=== PATIENT | female | born 1990 | race Caucasian/White ===

== ENCOUNTER → 2018-08-17 15:38 | Outpatient (POV) | payer BC, SELFPAY | PROVIDERS: PCP Nurse Practitioner Family; Visit Provider Dermatology | DX: Z00.00 Encounter for general adult medical examination without abnormal findings (principal) ==

== ENCOUNTER → 2022-02-04 16:00 | Outpatient (CLI) | payer BC, SELFPAY ==
[2022-02-04 17:59] LABS: Alanine Aminotransferase 37 U/L (12-78); Albumin/Globulin Ratio 1.8 (1.1-1.8); Alkaline Phosphatase 70 U/L (38-126); Anion Gap 15.1 mEq/L (5-15); Aspartate Amino Transferase 37 U/L (14-36); Basophils # 0.1 K/mm3 (0-0.2); Basophils % 1.1 % (0.1-2.0); Bilirubin,Total 0.6 mg/dl (0.2-1.3); Blood Urea Nitrogen 18 mg/dl (7-17); Carbon Dioxide 28 mmol/L (22.0-30.0); Chloride 102 mmol/L (98-107); Chol/HDL Ratio 6.3 (1-3.5); Cholesterol 239 mg/dl (140-200); Eosinophils # 0.2 K/mm3 (0.0-0.4); Eosinophils % 2.1 % (0.1-12.0); Estimated Glomerular Filt Rate 115 ml/min (>60); GFR (African American) 139 ML/MIN (>60); Globulin 2.8 g/dL (1.3-3.2); Glucose 83 mg/dl (74-100); HDL Cholesterol 38 mg/dl (40-60); Hematocrit 42.2 % (37.0-47.0); Hemoglobin 13.5 g/dL (12.2-16.2); Lymphocytes # 2.3 K/mm3 (0.7-4.5); Lymphocytes % 28.6 % (10-50); Mean Corpuscular HGB Conc 31.9 g/dL (31.8-35.4); Mean Corpuscular Hemoglobin 29.5 pg (27.0-31.2); Mean Corpuscular Volume 92.5 fl (81-99); Mean Platelet Volume 8.4 fl (7.4-10.4); Monocytes # 0.3 K/mm3 (0.1-1.0); Monocytes % 4.1 % (1.7-9.3); Neutrophils # 5.2 K/mm3 (1.8-7.8); Neutrophils % 64.1 % (37.0-80.0); Platelet Count 464 K/mm3 (142-424); Potassium 5.1 mmoL/L (3.5-5.1); Red Blood Count 4.56 M/mm3 (4.20-5.40); Sodium 140 mmol/L (136-145); Total Protein,Serum 7.8 g/dl (6.3-8.2); Triglycerides 268 mg/dl (30-150); VLDL Cholesterol 54 mg/dL (0-40); White Blood Count 8.1 K/mm3 (4.8-10.8)
[2022-02-04 18:09] LABS: Direct LDL Cholesterol 137.11 mg/dL (100-129)
[2022-02-04 18:18] LABS: 25-OH Vitamin D, Total 35.3 ng/mL (30-100)
[2022-02-04 18:29] LABS: Thyroid Stimulating Hormone 0.77 uIU/mL (0.465-4.68)
[2022-02-04 18:49] LABS: Vitamin B12 521 pg/mL (239-931)
== END ==
PROVIDERS: Visit Provider Physician Assistant
DX: Z01.89 Encounter for other specified special examinations (principal); F41.9 Anxiety disorder, unspecified; F32.A Depression, unspecified; E28.2 Polycystic ovarian syndrome
CPT/HCPCS: 80053; 80061; 82306; 82607; 84443; 85025

== ENCOUNTER → 2022-03-04 15:39 | Outpatient (CLI) | payer BC, SELFPAY ==
[2022-03-04 16:33] LABS: Basophils # 0.1 K/mm3 (0-0.2); Basophils % 1.1 % (0.1-2.0); Eosinophils # 0.1 K/mm3 (0.0-0.4); Eosinophils % 1.6 % (0.1-12.0); Hematocrit 37.1 % (37.0-47.0); Hemoglobin 12.3 g/dL (12.2-16.2); Lymphocytes # 2.6 K/mm3 (0.7-4.5); Mean Corpuscular HGB Conc 33.1 g/dL (31.8-35.4); Mean Corpuscular Volume 90.6 fl (81-99); Mean Platelet Volume 7.3 fl (7.4-10.4); Monocytes # 0.2 K/mm3 (0.1-1.0); Neutrophils # 4.4 K/mm3 (1.8-7.8); Neutrophils % 59.3 % (37.0-80.0); Platelet Count 408 K/mm3 (142-424); Red Blood Count 4.09 M/mm3 (4.20-5.40); White Blood Count 7.5 K/mm3 (4.8-10.8)
[2022-03-04 16:47] LABS: Alanine Aminotransferase 17 U/L (12-78); Albumin Level 4.5 g/dl (3.5-5.0); Albumin/Globulin Ratio 1.7 (1.1-1.8); Alkaline Phosphatase 59 U/L (38-126); Anion Gap 8.2 mEq/L (5-15); Aspartate Amino Transferase 25 U/L (14-36); Bilirubin,Total 0.4 mg/dl (0.2-1.3); Blood Urea Nitrogen 13 mg/dl (7-17); Calcium 9.5 mg/dl (8.4-10.2); Carbon Dioxide 31 mmol/L (22.0-30.0); Chloride 105 mmol/L (98-107); Estimated Glomerular Filt Rate 96 ml/min (>60); GFR (African American) 117 ML/MIN (>60); Globulin 2.6 g/dL (1.3-3.2); Glucose 90 mg/dl (74-100); Potassium 4.2 mmoL/L (3.5-5.1); Sodium 140 mmol/L (136-145); Total Protein,Serum 7.1 g/dl (6.3-8.2)
[2022-03-04 16:53] LABS: HCG Qualitative, Serum Negative (Negative)
[2022-03-04 17:44] LABS: Amphetamine/Metha Screen,Urine Negative ng/ml (<1000); Barbiturates Screen,Urine Negative ng/ml (<200)
[2022-03-04 17:45] LABS: Benzodiazepines Screen,Urine Negative ng/ml (<200)
[2022-03-04 17:46] LABS: Cannabinoid Screen,Urine Negative ng/ml (<50); Cocaine Screen,Urine Negative ng/ml (<300)
[2022-03-04 17:47] LABS: Methadone Screen,Urine Negative ng/ml (<300)
[2022-03-04 17:48] LABS: Opiate Screen,Urine Negative ng/ml (<300); Phencyclidine Screen,Urine Negative ng/ml (<25)
== END ==
PROVIDERS: PCP Physician Assistant; Visit Provider Obstetrics & Gynecology
DX: Z01.818 Encounter for other preprocedural examination (principal); Z11.52 Encounter for screening for COVID-19; N92.0 Excessive and frequent menstruation with regular cycle
CPT/HCPCS: 36415; 80053; 80305; 84703; 85025; C9803; U0003; U0005

== ENCOUNTER 2022-03-06 06:54 | Day surgery (SDC) | payer BC, SELFPAY ==
[2022-03-04 09:08] VITALS: BMI 27.4
[2022-03-06] VITALS (11 sets, daily range): BP systolic 99–144; BP diastolic 65–89; PULSE 66–80; RESP 12–18; TEMP 36.3–37.3; O2SAT 94–100
--- NOTE | 2022-03-06 09:00 | HMH.ANESCL ---
[facility] Anesthesia Checklist - Structural Data Admitted From: Home Planned Operative Procedure/s: d/c modesto caban Consent for Planned Operative Procedure(s) Verified: Yes - Additional verifications Anesthesia Reactions: No Hx Blood Transfusions: No Blood Transfusion Reaction: No - Airway Assessment C-Spine Mobility Assessed: Yes TMJ Mobility Assessed: Yes Dentition: Good Dentition - Neurological Assessment Level of Consciousness: Awake, Alert, Appropriate - Anesthesia Plan Anesthesia Risk discussed: Yes Anesthesia Plan: Verified ASA Class: II Anesthesia Type: General [facility] History I have reviewed the patient's past medical history: Yes Medical History: Denies:: Cancer, Diabetes Mellitus Type 1, Diabetes Mellitus Type 2, Internal Pacemaker, MRSA, Seizures *Have you ever received a pneumonia vaccine?: No *Have you received a flu vaccine this season?: No Other Medical History: Denies: Blood Transfusion Reaction Anesthesia experience/problems:: none Other Surgeries: Yes: No Previous Surgery. No: Pacemaker Amputation: No Fractures: No - *Social History Last grade of school completed: Advanced degree Smoking Status: Never smoker Alcohol Intake: never Substance Use Type: denies use *Occupational Status:: employed Housing: house Household Members: spouse, family *Travel in the last 8 weeks: None Family Hx:: Hypertension
--- NOTE | 2022-03-06 09:25 | P.PN_ITS ---
[facility] Anesthesia Record Part I Intake, IV Amount: 1,000 Estimated blood loss (mL): 0 Urine output (mL): 0 Blood Pressure: 127/77 SaO2: 98 Pulse Rate: 76 Respiratory Rate: 12 Temperature: 97.4 F Patient is:: Awake, Stable Stable to PACU at:: 09:25
--- NOTE | 2022-03-06 09:42 | P.OP_ITS ---
Date of procedure: 03/06/22 Pre-op Diagnosis:: Heavy menstrual bleeding Dysfunctional uterine bleeding Post-op Diagnosis:: same Procedure performed:: D&C Hysteroscopy Novasure Endometrial Ablation Surgeon:: Mallory Marin MD [employer] MICA:: Scott Wilkins Anesthesia: GETA Estimated blood loss (mL): 5 Operative findings:: normal uterine cavity, with no polyps or fibroids visualized Operative note:: The patient was taken to the OR where general anesthesia was administered without difficulty. She was prepped/draped in the normal sterile fashion in supine position. The cervix was dilated until hysteroscope could be accomodated. The hysteroscope was introduced through the cervix into the uterus and the cavity surveyed. No abnormalities, fibroids or polyps were observed within the cavity. The Novasure device was introduced into the uterus. The cavity length was measured at 5cm and width at 4cm, and the cavity assessment w as successful. The Novasure was deployed and the endometrial ablation was completed in 68 seconds, and without complication. All instruments were removed from her vagina, she was awakened from anesthesia and taken to PACU in stable condition. Condition: stable Disposition: PACU Specimens:: Endometrial curettings Complications:: none
--- NOTE | 2022-03-07 08:21 | HMH.ANESII ---
[facility] Anesthesia Record Part II Discharge Time: 09:53 Destination: Surgical Day Care (OP Surgery) PACU nurse assessment reviewed?: Yes Patient Condition:: Good Anesthesia Complications:: None Swallowing reflex intact?: Yes Cyanosis?: No Blood Pressure: 144/85 Pulse Rate: 72 Temperature: 99.1 F Mental Status: Alert & Oriented Pain level:: 0 Nausea and/or vomitting:: None Intake, IV Amount: 0
[2022-03-07 08:22] VITALS: BP 144/85; PULSE 72; TEMP 37.3
== END 2022-03-06 10:55 | disposition home or self-care (01) ==
LOC: OR 06:57
PROVIDERS: PCP Physician Assistant; Visit Provider Obstetrics & Gynecology
PROC: (CPT 58563; principal; 2022-03-06 08:30)
DX: N92.0 Excessive and frequent menstruation with regular cycle (principal); N93.8 Other specified abnormal uterine and vaginal bleeding; N94.6 Dysmenorrhea, unspecified; Z98.51 Tubal ligation status; Z79.899 Other long term (current) drug therapy; Z82.49 Family history of ischemic heart disease and other diseases of the circulatory system
CPT/HCPCS: 58563; 96374; J2405

== ENCOUNTER → 2022-11-12 11:25 | Outpatient (CLI) | payer BC, SELFPAY ==
[2022-11-11 15:22] LABS: Basophils % 0.6 % (0.1-2.0); Eosinophils # 0.1 K/mm3 (0.0-0.4); Hematocrit 37.9 % (37.0-47.0); Hemoglobin 12.6 g/dL (12.2-16.2); Lymphocytes # 2.2 K/mm3 (0.7-4.5); Lymphocytes % 33.9 % (10-50); Mean Corpuscular HGB Conc 33.4 g/dL (31.8-35.4); Mean Corpuscular Hemoglobin 29.8 pg (27.0-31.2); Mean Corpuscular Volume 89.3 fl (81-99); Mean Platelet Volume 8.4 fl (7.4-10.4); Monocytes # 0.2 K/mm3 (0.1-1.0); Monocytes % 3.5 % (1.7-9.3); Neutrophils # 3.9 K/mm3 (1.8-7.8); Platelet Count 374 K/mm3 (142-424); Red Blood Count 4.24 M/mm3 (4.20-5.40); Red Cell Distribution Width 13.1 % (11.5-17.5); White Blood Count 6.5 K/mm3 (4.8-10.8)
[2022-11-11 15:39] LABS: Alanine Aminotransferase 22 U/L (12-78); Albumin Level 4.5 g/dl (3.5-5.0); Albumin/Globulin Ratio 1.7 (1.1-1.8); Alkaline Phosphatase 89 U/L (38-126); Anion Gap 11.6 mEq/L (5-15); Aspartate Amino Transferase 30 U/L (14-36); Bilirubin,Total 0.5 mg/dl (0.2-1.3); Blood Urea Nitrogen 18 mg/dl (7-17); Calcium 9.9 mg/dl (8.4-10.2); Carbon Dioxide 28 mmol/L (22.0-30.0); Chloride 104 mmol/L (98-107); Cholesterol 209 mg/dl (140-200); Estimated Glomerular Filt Rate 82 ml/min (>60); GFR (African American) 99 ML/MIN (>60); Globulin 2.6 g/dL (1.3-3.2); Glucose 86 mg/dl (74-100); HDL Cholesterol 42 mg/dl (40-60); Potassium 4.6 mmoL/L (3.5-5.1); Sodium 139 mmol/L (136-145); Total Protein,Serum 7.1 g/dl (6.3-8.2); Triglycerides 154 mg/dl (30-150); VLDL Cholesterol 31 mg/dL (0-40)
[2022-11-11 15:50] LABS: Direct LDL Cholesterol 133.11 mg/dL (100-129)
[2022-11-11 16:10] LABS: Thyroid Stimulating Hormone 1.11 uIU/mL (0.465-4.68)
[2022-11-11 16:29] LABS: Vitamin B12 387 pg/mL (239-931)
== END ==
PROVIDERS: PCP Physician Assistant; Visit Provider Physician Assistant
DX: Z00.00 Encounter for general adult medical examination without abnormal findings (principal); E55.9 Vitamin D deficiency, unspecified; Z79.899 Other long term (current) drug therapy
CPT/HCPCS: 80053; 80061; 82306; 82607; 84443; 85025

== ENCOUNTER 2025-08-14 16:41 | Outpatient (CLI) | payer BC, SELFPAY ==
--- OUTSIDE RECORDS SUMMARY | 2025-08-15 09:53 | XMS_ITS | Clinical Summary ---
Author Organization [facility] Address [address] [place] [address] Care Team Providers Care Electronic Publications Specialist Name Role Phone Sydnie Carranza MD Primary Care Provide r Allergies No known active allergies Medications No known medications Active Problems Problem Noted Date Diagnosed Date Incomplete miscarriage 01/02/2019 Retained products of conception after miscarriag e 01/02/2019 Social History Tobacco Use Types Packs/Day Years Used Date Smoking Tobacco: Never Smokeless Tobacco: Never Alcohol Use Standard Drinks/Week Comments No 0 (1 standard drink = 0.6 oz pur e alcohol) AUDIT-C Answer Date Recorded Frequency of Alcohol Consumption Never 01/02/2019 Average Number of Drinks Not on file 019 Frequency of Binge Drinking Not on file 12/17 Abuse Screen Answer Date Recorded Unsafe at Home or Work/School Not on file Feels Threatened by Someone? Not on file 08/2023 Does Anyone Keep You from Co ntacting Others or Doint Things Outside the Home? Not on file 08/25/2023 Physical Sign of Abuse Present Not on file 1 Housing Stability Answer Date Recorded Current Living Arrangements Not on file 08/16 Potentially Unsafe Housing Conditions Not on oral e 08/25/2023 Family and Community Support Answer Nabeel e Recorded Help with Day-to-Day Activities Not on file 08/25/2023 Lonely or Isolated Not on file 08/25/2023 Employment Answer Date Recorded Do you want help finding or keeping work or a kristie b? Not on file 08/25/2023 Disabilities Answer Date Recorded Concentrating, Remembering, or Making Decisions Difficulty Not on file 08/25/2023 Doing Errands Independently Difficulty Not on fi le 08/25/2023 Education Answer Date Recorded Help with school or training? Not on file Preferred Language Not on file 08/25/2023 Comments Unknown Sex and Gender Information Value Date Recorded Sex Assigned at Not on file Legal Sex Female 1:47 PM EDT Gender Identity Not on file Sexual Orientation Not on file Last Filed Vital Signs Vital Sign Reading Time Taken Comments Blood Pressure 113/68 01/02/2019 12:58 PM EST Pulse 72 01/02/2019 12:58 PM EST Temperature 37.1 C (98.7 F) 01/02/2019 12:58 PM EST Respiratory Rate 17 01/02/2019 12:58 PM EST Oxygen Saturation 100% 01/02/2019 12:58 PM EST Inhaled Oxygen Concentration - - Weight 81.6 kg (180 lb) 01/02/2019 3:00 AM EST Height 162.6 cm (5' 4 ) 01/02/2019 3:00 AM EST Body Mass Index 30.9 01/02/2019 3:00 AM EST Plan of Treatment Health Maintenance Due Date Last Done Comments Annual Gynecologic Pelvic an d Breast Exam 1988 TDAP/TD VACCINES (1 - Tdap) 2007 ANNUAL PHYSICAL 01/02/2019 HEPATITIS C SCREENING 01/02/2019 INFLUENZA VACCINE 06/16/2025 Pneumococcal Vaccine 0-49 Aged Out No longer eligible based on patient's age to complete this topic Insurance Advance Directives * CPR (Attempt to Resuscitate) (Latest Code Status on File) Date Activated Date Inactivated Comments 01/02/2019 1:28 PM 01/02/2019 5:31 PM Question Answer Comments Code Status (Patient has no pulse and is not breathing): CPR (Attempt to Resuscitate) Medical Interventions (Patie nt has pulse or is breathing): Full Level Of Support Discussed With: Patient Care Teams Electronic Publications Specialist Relationship Specialty Start Date End Date Sydnie Carranza MD [address] [place] [address] PCP - General Obstetrics and Gynecology 01/02/19
--- OUTSIDE RECORDS SUMMARY | 2025-08-15 09:53 | XMS_ITS | Encounter Summary ---
Author Organization Healthcare Address [address] [place] [address] Care Team Providers Care Account Contact Associate Name Role Phone Unavailable Primary Care Provider Unavailabl e Reason for Visit * Reason Comments Med Refill Encounter Details Date Type Department Care Team (Late st Contact Info) Description 04/28/2021 Refill [facility] [address] [place] [address] Nataliia Smith MD [address] [place] [address] Social History Tobacco Use Types Packs/Day Years Used Date Smoking Tobacco: Never Comments Unknown Sex and Gender Information Value Date Recorded Sex Assigned at Female 06/16/2023 6:39 PM EDT Legal Sex Female 6:17 PM EDT Gender Identity Female 06/16/2023 6:39 PM EDT Sexual Orientation Not on file documented as of this encounter Miscellaneous Notes * Telephone Encounter - Willow Woodard - 05/01/2021 8:57 AM EDT Pt last saw annalisa post in December. She gave her an RX for this in Oct 2020 with 1 refill and she hasn't gotten any since then. Does she need an appt to get more? * Telephone Encounter - Anjali Thomas, PharmD - 05/01/2021 8:21 AM EDT Patient must make appointment for additional refills. Rx sent to [facility] for escitalopram 10mg #30 + no refills. documented in this encounter Plan of Treatment Not on file documented as of this encounter Visit Diagnoses Not on filedocumented in this encounter
--- OUTSIDE RECORDS SUMMARY | 2025-08-15 09:53 | XMS_ITS | Clinical Summary ---
Author Organization Healthcare Address [address] [place] [address] Care Team Providers Care Marine Electrician Helper Name Role Phone Unavailable Primary Care Provider Unavailabl e Medications escitalopram (Lexapro) 10 MG tablet TAKE 1 TABLET AT BEDTIME 30 tablet 05/01/2021 Active Immunizations Immunization Administration Dates Next Due Influenza, injectable, quadrivalent 09/19/2019 Tdap 04/08/2017 Social History Tobacco Use Types Packs/Day Years Used Date Smoking Tobacco: Never Comments Unknown Sex and Gender Information Value Date Recorded Sex Assigned at Female 06/16/2023 6:39 PM EDT Legal Sex Female 6:17 PM EDT Gender Identity Female 06/16/2023 6:39 PM EDT Sexual Orientation Not on file Last Filed Vital Signs Vital Sign Reading Time Taken Comments Blood Pressure 118/76 01/02/2020 11:04 AM EST Pulse 80 12/01/2019 11:17 AM EST Temperature - - Respiratory Rate 16 09/05/2019 10:2 4 AM EDT Oxygen Saturation - - Inhaled Oxygen Concentration - - Weight 86.1 kg (189 lb 13.1 oz) 020 11:04 AM EST Height 162.6 cm (5' 4 ) 01/02/2020 11:0 4 AM EST Body Mass Index 32.58 01/02/2020 11:04 AM EST Plan of Treatment Not on file
== END 2025-08-14 23:59 | disposition home or self-care (01) ==
LOC: LAB.DROPOF 08-15 09:44
PROVIDERS: PCP Student in an Organized Health Care Education/Training Program; Visit Provider Student in an Organized Health Care Education/Training Program
DX: J02.9 Acute pharyngitis, unspecified (principal)

== ENCOUNTER 2025-11-12 16:35 | Emergency (ER) | payer BC, SELFPAY ==
[2025-11-12 17:04] VITALS: BP 130/72; PULSE 83; RESP 16; TEMP 36.6; O2SAT 100; BMI 20.7
--- NOTE | 2025-11-12 17:22 | ED_ITS ---
<Statement entered by Stevan Mckinney MD - 11/12/25 22:01> Stevan Mckinney MD: I was consulted by the GIORGI, and we discussed the complexity of the problems being addressed. I approve the treatment and management plan for this patient's care in the emergency department, thus performing a substantive portion of the medical decision making. Discharge Plan Disposition Patient Disposition: Home, Self-Care Condition: Good Prescriptions Prescriptions: No Action Wegovy 2.4 mg/0.75 mL pen injector 2.4 mg SQ WEEKLY 90 Days Qty: 9.75 3RF escitalopram oxalate 20 mg tablet 20 mg PO DAILY Qty: 90 3RF montelukast 10 mg tablet 10 mg PO QPM Qty: 90 3RF fluticasone propionate [Flonase Allergy Relief] 50 mcg/actuation spray,suspension 2 spray intranasal DAILY Qty: 16 2RF Rx Instructions: administer into each nostril daily methylprednisolone 4 mg tablets,dose pack See Rx Instructions PO PER PKG DIR Qty: 21 0RF Rx Instructions: PO PER PKG DIR ergocalciferol (vitamin D2) 1,250 mcg (50,000 unit) capsule 1,250 mcg PO WEEKLY Qty: 14 3RF cholecalciferol (vitamin D3) 25 mcg (1,000 unit) capsule See Rx Instructions .ROUTE .COMPLEX Qty: 30 0RF Dose Instruction: TAKE 1 CAPSULE BY MOUTH ONCE DAILY Rx Instructions: TAKE 1 CAPSULE BY MOUTH ONCE DAILY Referrals Follow up/Referrals: Mary Elder PA [Primary Care Provider, Medical] - See instructions Activity Restrictions/Add. Instructions Additional Instructions/Restrictions: You were seen for a finger laceration. Have your sutures removed in 10-14 days. Return here for bleeding, redness, fever or drainage. Clinical Impressions Clinical Impression: Laceration Instructions Patient Instructions: DI for Laceration Repair Print Language Print Language: Somali Discharge ED Provider: Stevan Mckinney General Adult HPI General Chief complaint: Wound/Laceration Stated complaint: cut finger open with chainsaw deep Time Seen by Provider: 11/12/25 17:13 Mode of Arrival: Ambulatory Source of Information: Patient Description of Symptoms (Recalled from ER Triage Doc. by RN): Patient reports cutting her left middle finger on a chainsaw. History of Present Illness HPI narrative: Patient presents with a laceration to her left middle finger. She reports that she was doing some yard work and her finger was caught in the limb tremor with the limbs. She does report some distal paresthesias. Unsure of her last tetanus vaccination. Denies any fevers or vomiting. MD complaint: finger laceration Onset (ago): minute(s) Location: left and upper extremity Radiation: non-radiation Severity: mild Consistency: constant Relieving factors: none Exacerbating factors: none Associated symptoms: denies other symptoms Related Data Previous Rx's ?Medication ?Instructions ?Recorded ergocalciferol (vitamin D2) 1,250 1,250 mcg PO WEEKLY #14 caps 04/02/23 mcg (50,000 unit) capsule cholecalciferol (vitamin D3) 25 See Rx Instructions .R oute 04/07/23 mcg (1,000 unit) capsule .COMPLEX #30 caps escitalopram oxalate 20 mg tablet 20 mg PO DAILY #90 t abs 12/03/23 montelukast 10 mg tablet 10 mg PO QPM allergies #90 t abs 12/03/23 semaglutide (weight loss) 2.4 2.4 mg (0.75 mL) SQ WEEK LY 90 days 12/03/23 mg/0.75 mL subcutaneous pen #9.75 mL injector (Tumbie) fluticasone propionate 50 2 spray intranasal DAILY #16 grams 07/25/25 mcg/actuation nasal spray,suspension (Flonase Allergy Relief) methylprednisolone 4 mg tablets in See Rx Instructions PO PER PKG DIR 08/14/25 a dose pack #21 tabs Allergies Allergy/AdvReac Type Severity Reaction Status Date / Time No Known Allergies Allergy Verified 08/14/25 16:38 [facility] Disclaimer: The information contained in this section may have been updated after the patient was seen, as this information can be updated by other users. Medical History Sinusitis PCOS (polycystic ovarian syndrome) HSV infection Anxiety and depression Surgical History History of tubal ligation Family History Other Hyperlipidemia Hypertension Thyroid disorder Social History Smoking Status: Never smoker alcohol intake: never substance use type: denies use current occupational status: employed Travel in the last 8 weeks?: None household members: spouse and family housing: house current occupation: medical coding caffeine: Yes Have you lived/traveled outside [place] in past 30 days?: No Contact w/someone who lives/traveled outside US past 30 days?: No Exposure to someone with infectious disease in past 14 days?: No Do you have a fever (greater than 100.4 F or 38 C)?: No Have you tested positive for COVID-19?: No Exposed to someone with COVID-19 in past 14 days?: No Do you have a sore throat?: No Do you have a cough?: No Do you have any weakness?: No Do you have any diarrhea?: No Are you experiencing any unusual bleeding?: No Do you have any muscle aches/pain?: No Do you have any abdominal pain?: No Are you experiencing loss of taste or smell?: No Other Medical History Have you received the Flu Vaccine for this season: No Have you received the Pneumonia Vaccine: No ROS Obtained: Yes Systems reviewed as appropriate & no additional complaints except as documented Physical Exam General General appearance: alert and in no apparent distress Head Head exam: atraumatic and normocephalic Eye Eye exam: Present normal appearance and EOMI Chest Chest inspection: Present symmetric chest wall rise Respiratory Respiratory exam: Present normal lung sounds bilaterally; Absent wheezes or stridor Cardiovascular Cardiovascular exam: Present regular rate and normal rhythm; Absent systolic murmur Extremities Exam Extremities exam: Present full ROM Neurological Exam Neurological exam: Present alert and oriented X3 Psychiatric Psychiatric exam: Present normal affect and normal mood Skin Skin exam: Present warm, dry and other (Left 3rd finger laceration to the middle phalanx, medial/ palmar surface, irregular 1.5 cm. Full range of motion, neurovascularly intact) Medical Decision Making Medical Records Screening: Per USPSTF and CDC recommendations, given the prevalence of disease in our region, it is our hospital?s policy to screen for HIV and viral Hepatitis for all patients aged 18 and over and those with ongoing risk factors. Rei Inquiry Pt receiving controlled substance: No Vital Signs: 11/12/25 17:04 11/12/25 19:32 Temperature 97.9 F 98.2 F Temperature Source Oral Pulse Rate 72 Pulse Rate [Radial] 83 Respiratory Rate 16 20 Blood Pressure 130/70 Blood Pressure [Right Arm] 130/72 Blood Pressure Mean [Right Arm] 91 Blood Pressure Source [Right Arm] Automatic Cuff Blood Pressure Position [Right Arm] Sitting 02 Sat by Pulse Oximetry 100 Oxygen Delivery Method Room Air Room Air Orders (Tests/Meds): ED MEDICATIONS Discontinued Medications Generic Name Dose Route Start Last Admin Trade Name Richard PRN Reason Stop Dose Admin Lidocaine HCl 5 ml 11/12/25 17:21 11/12/25 18:03 Lidocaine 1% 5ml Pf Vial IJ 11/12/25 17:22 5 ml ONCE ONE Administration Tetanus/Reduced Diphtheria/Acell Pertussis 0.5 ml 11/12/25 17:21 11/12/25 18:02 Tet/Diphth/Pert-Adult 0.5ml Syringe IM 11/12/25 17:22 0.5 ml .ONCE ONE Administration ORDERS Category Date Time Status Hand XR left minimum 3 views [XR hand LT min 3V] Stat Exams 11/12/25 17:58 Completed Medical Decision Narrative: In summary patient is a 35-year-old female who presents the emergency department for evaluation of laceration. Patient is hemodynamically upon arrival, afebrile. Laceration on exam. Differential diagnosis includes laceration, fracture. Initial workup will be conducted with x-ray. Initial inventions include irrigation and closure with suture. Initial workup reviewed by me mak foley for fracture. Upon repeat evaluation patient acceptable resolution of symptoms. Given this patient is appropriate for discharge home at this time with return precautions and instructions on wound care. Critical Care Critical Care Time Critical Care Time: No
--- OUTSIDE RECORDS SUMMARY | 2025-11-12 17:22 | XMS_ITS | Data Portability ---
Author Organization [place] Address [address] [place] [address] Assessment No assessment recorded. Plan of Treatment Reminders Order Date Submit Date Provider Last Modified By Organization Details Last Modified Time Details Appointments None recorded. Lab None recorded. Referral None recorded. Procedures None recorded. Surgeries None recorded. Imaging None recorded. Medication Orders Singulair 10 mg tablet 2023 [employer] [facility] [facility], [address] [place] [address], [address], 4 12:17:38 Zithromax Z-Pasquale 250 mg tablet 2023 [facility] #[id number], [address], [id number], 4 11:26:42 prednisone 20 mg tablet 2023 [facility] #[id number], [address], [id number], 4 11:26:34 Sudafed 12 Hour 120 mg tablet,exte nded release 2023 [facility] #[id number], [address], [id number], 4 11:26:32 escitalopra m 20 mg tablet 2023 [facility], [address] [place] [address], [address], 12:17:37 Wegovy 2.4 mg/0.75 mL subcutaneou s pen injector 2023 [facility], [address] [place], [address], 12:17:37 Patient TargetsNo targets recorded. Patient Instructions Encounter Date Encounter Id Patient Instructions Last Modified By Organization Details Last Modified Time 11/11/2024 [id number] allergies: care instructions [email or web address] Not available 11/11/2024 11:26:25 Acute Sinusitis: Care Instructions Not available 11/11/2024 11:26:25 learning about mood disorders [email or web address] Not available 11/11/2024 11:26:25 Reason for Referral None Reported. Problems Name Problem SNOMED Code Status Onset Date Resolution Date Notes Provider Name and Address Organization Details Recorded Time Acute sinusitis 95808196 Active 024 SANCHEZ Gomez [address] [place] [address], [phone], [employer] 11:24:09 Allergic rhinitis 34118354 Active 024 SANCHEZ Gomez [address] [place] [address], [phone], [employer] 11:24:18 Depressive disorder 14738573 Active 024 SANCHEZ Gomez [address] [place] [address], [phone], [employer] 11:24:22 Problem Notes None recorded. Procedures Surgical History Date Name Laterality Status Provider Name and Address Organization Details Recorded Time Tubal Ligation completed [employer] 11/11/2024 11:07:09 Dilation and Curettage completed [employer] 11/11/2024 11:07:09 Imaging Results None recorded. Procedure Notes None recorded. Medical Equipment None Reported. Allergies No known drug allergies Medications Name Sig Start Date Stop Date Status Note LastModified by Organization Details LastModified Time azithromycin 250 mg tablet TAKE 2 TABLETS (500 MG) BY ORAL ROUTE ONCE DAILY FOR 1 DAY THEN 1 TABLET (250 MG) BY ORAL ROUTE ONCE DAILY FOR 4 DAYS active Not Available Not Available No t Available prednisone 20 mg tablet Take 1 tablet twice a day by oral route as directed for 5 days. active Not Available Not Available Not Available montelukast 10 mg tablet TAKE 1 TABLET DAILY DIRECTED 2024 active Not Available Not Available Not Avai lable escitalopram 20 mg tablet Take 1 tablet every day by oral route as directed for 90 days, for depression. active Not Available Not Available Not Available [facility] 120 mg tablet,exten ded release Take 1 tablet every 12 hours by oral route as needed for 10 days, for congestion. active Not Available Not Available Not Available Wegovy 2.4 mg/0.75 mL subcutaneous pen injector INJECT 1 AUTO-INJECT OR SUBCUTANEOU SLY ONCE A WEEK 2024 active Not Available Not Available Not Avai lable Vitals Date Recorded Body weight Body mass index (BMI) Body height Oxygen saturation Heart rate Body temperature Systolic And Diastolic Provider Name and Address Organization Details Last Updated DateTime 4 35255.2 3 g 21.1 kg/m2 165.1 cm 100 % 70 /min 97.8 [degF] 103/69 mm[Hg] Ayesha Omnigy, [employer]. 11:11:51 Social History Question Answer Notes LastModified by Organizat ion Details LastModified Time Tobacco Smoking Status Never Smoker [employer]yesha [email or web address] [facility], [place]. 11/11/2024 11:07:09 Do You Have An Advance Directive? No Information not available 11/11/2024 Is Your Home Air Conditioned? Yes Information not available 11/11/2024 If You Are , What Was Your Level Of Alcohol Consumption Prior To ? None Information not available 11/11/2024 Do You Wear A Helmet When Biking? No Information not available 11/11/2024 Are You Blind Or Do You Have Difficulty Seeing? No Information not available 11/11/2024 What Is Your Level Of Caffeine Consumption? Occasional Information not available 11/11/2024 What Type Of Magnetic Grinder Operator Do You Use? None Information not available 11/11/2024 Have You Been To An Area Known To Be High Risk For COVID-19? No Information not available 11/11/2024 Are You Deaf Or Do You Have Serious Difficulty Hearing? No Information not available 11/11/2024 What Type Of Diet Are You Following? REGULAR Information not available 11/11/2024 Who Is Your Employer? [employer] Information not available 11/11/2024 How Many Days Of Moderate To Strenuous Exercise, Like A Brisk Walk, Did You Do In The Last 7 Days? 5 Information not available 11/11/2024 Have There Been Any Changes To Your Family Or Social Situation? No Information no t available 11/11/2024 Are There Any Guns Present In Your Home? Yes Information not available 11/11/2024 Which Of Your Hands Is Dominant? Right Information not available 11/11/2024 What Is Your Home Situation? Both Parents Information not available 11/11/2024 Do You Have A Medical Power Of Scouring Machine Operator? No Information not available 11/11/2024 What Was The Date Of Your Most Recent Tobacco Screening? 11/11/2024 Information not available 11/11/2024 Are There Any Occupational Health Risks Where You Work? No Information not available 11/11/2024 Do You Have Any Pets? Yes Information not available 11/11/2024 Do You Use Protection During Sex? No Information not available 11/11/2024 Do You Use Protection Against STDs? No Information not available 11/11/2024 What Is Your Relationship Status? Information not available 11/11/2024 Have You Repeated Any Grades? No Information not available 11/11/2024 Do You Use Your Seat Belt Or Car Seat Routinely? Yes Information not available 11/11/2024 Are You Sexually Active? Yes Information not available 11/11/2024 Do You Have Any Siblings? 1 Information not available 11/11/2024 Do You Have Smoke And Carbon Monoxide Detectors In Your Home? Yes Information not available 11/11/2024 Are You Passively Exposed To Smoke? No Information no t available 11/11/2024 Are There Any Smokers In Your House? No Information not available 11/11/2024 Do You Participate In Social Media? Yes Information not available 11/11/2024 What Types Of Sporting Activities Do You Participate In? Nonw Information not available 11/11/2024 Do You Use Sunscreen Routinely? Yes Information not available 11/11/2024 Has Tobacco Cessation Counseling Been Provided? No Information not available 11/11/2024 Have You Recently Traveled Abroad? No Information not available 11/11/2024 Do You Have Difficulty Walking Or Climbing Stairs? No Information not available 11/11/2024 Are You Currently In School? No Information not available 11/11/2024 What Contraceptive Method Was Reported At Start Of This Visit? Female Sterilization Information not available 11/11/2024 Do You Have Any Dietary Restrictions? No Information not available 11/11/2024 Sex: Female Functional Status Question Answer Note LastModified by Organizat ion Details LastModified Time Do you use any illicit or recreational drugs? No Information not available 11/11/2024 Do you or have you ever used any other forms of tobacco or nicotine? No Information not available 11/11/2024 What is your level of alcohol consumption? None Information not available 11/11/2024 Are you currently employed? Yes Information not available 11/11/2024 Do you have transportation difficulties? No Information not available 11/11/2024 Are you able to walk independently without assistance or assistive devices? [employer] Information not available 11/11/2024 Do you have difficulty doing errands alone? No Information not available 11/11/2024 Are you able to care for yourself independently? Yes Information not available 11/11/2024 Do you have difficulty dressing, bathing, grooming, or toileting? No Information not available 11/11/2024 What is your exercise level? Occasional Information not available 11/11/2024 Mental Status Question Answer Note LastModified by Organizat ion Details LastModified Time Do you feel stressed (tense, restless, nervous, or anxious, or unable to sleep at night)? PP8529-9 Information not available 11/11/2024 Do you have difficulty concentrating, remembering or making decisions? No Information no t available 11/11/2024 Are you or have you been involved with bullying? No Information not available 11/11/2024 Family History Relationship Description Onset Age of this Age Resolved Age Notes LastModified by Organization Details LastModified Time Father No current problems or disability Not available 11/11 11:12:21 Mother No current problems or disability Not available 11/11 11:12:21 Medical History Condition Response Coronary Artery Disease N Other N Gout N Kidney Stones N Blood Diseases N Hyperthyroidism N Breast Cancer N Blood Transfusion N Emergency room visit since last appointm ent. N Hypothyroidism N Lung Disease N Dermatologic Disorders N COPD N Depression N Developmental or Behavioral Disorders N Defects or Inherited Disease N Breast Problem N Difficulty Swallowing N Anesthesia Complications N History of STI N Meniere's disease N Anxiety Disorder N Muscle, Joint, or Bone Problems N Autoimmune disease N Vision or Eye Problems N Arthritis N Polyps N Infertility N Mental Disorder N Congenital Anomalies N Acid Reflux (GERD) N Cancer N Stroke N Neurologic/Epilepsy N Endometriosis N Bladder or Kidney Problems N High Cholesterol N Liver Disease N Psychiatric/Mental Health Condition N Organ Transplant N Fibromyalgia N Dialysis N Schizophrenia N Headaches N Kidney Disease N Allergies/Hayfever N Heart Problems N Ear or Hearing Problems N Hospitalizations N Learning Disorder N Artificial Joints N Thyroid Problems N GI Problems N Acne N ADD/ADHD N Eating Disorder N Anemia N Constipation N Mental Illness N Ovarian Cancer N Diabetes N Bedwetting N Hepatitis/Liver Disease N Tuberculosis N Eczema N Diverticulitis N Abuse/Domestic Violence N Asthma N Trauma/Violence N Substance Abuse N Reflux/GERD N Depression/ depression N Hepatitis N Heart Disease N Pulmonary Embolism N Tourette Syndrome N Pre-Eclampsia N Hypertension N Chronic Ear Infections N Osteoporosis N Chicken Pox N Autism Spectrum Disorder (ASD) N Thrombophilias N Gynecological History Statement/Question Response Abnormal Pap N Menses Monthly N HPV Vaccine N Date of Last Pap Smear Current Control Method Sterilizati on Most Recent Mammogram Age at First Child 20 Obstetrics History GPAL:G 5 P 4 0 1 4 Type Value Multiple Births 0 Full Term 4 Induced 0 Spontaneous 1 Premature 0 Living 4 Ectopics 0 Total 5 Immunizations Vaccine Type Date Status Note Provider Nam e and Address Organization Details Recorded Time Influenza, split virus, quadrivalent, PF 09/19/2019 completed Ayesha Vice [employer], [employer] 11/11/2024 11:07:20 Past Encounters Encounter ID Performer Location Encounter Start Date Encounter Closed Date Diagnosis/Indication Diagnosis SNOMED-CT Code Diagnosis ICD10 Code Diagnosis IMO Codes Diagnosis Note [id number] SANCHEZ Gomez [facility] [address] [place] [address] 11/11/2024 10:59:19 11/11/2024 11:24:04 Acute sinusitis 51723591 J01.90 Allergic rhinitis 507735 04 J30.9 Depressive disorder 3548 9007 F32.A Body mass index 20-24 - normal 287431306 Z68.21 Health Concerns Section Related Observation LastModified by Organization Detai ls LastModified Time None Recorded Concern Status LastModified by Organization Details LastModified Time None Recorded Advance Directives Directive N: Payers Insurance Date Sequence Insurance Name Policy Number Policy Curtis Covered Member ID Curtis Member ID Guarantor Name 11/11/2024 1 [place] [id number] Eddie Daisy Steele [id number] Daisy Steele Notes Date Note Type Note Provider Name and Address Organization Details Recorded Time 11/11/2024 text/html Patient presents to establish care.History of allergic rhinitis. Due for refillsHistory of depression. Doing well on Lexapro. Needs refills.History of obesity, but now down to BMI 21 with Wegovy and on maintenance.Has had sinus pain, pressure, post nasal drainage for a few days. No fever. Can't sleep. SANCHEZ Gomez [address] [place] [address], [place], [address], [facility] [employer] 11/11/2024 13:28:20 OBGyn Episode No OBEpisode recorded.
--- OUTSIDE RECORDS SUMMARY | 2025-11-12 17:22 | XMS_ITS | Clinical Summary ---
Author Organization [facility] Address [address] [place] [address] Care Team Providers Care Cone Sewer Name Role Phone Sydnie Carranza MD Primary [...] Of Support Discussed With: Patient Care Teams Cone Sewer Relationship Specialty Start Date End Date Sydnie Carranza MD [address] [place] [address] PCP - General Obstetrics and Gynecology 01/02/19
--- OUTSIDE RECORDS SUMMARY | 2025-11-12 17:22 | XMS_ITS | Clinical Summary ---
Author Organization Healthcare Address [address] [place] [address] Care Team Providers Care Senior Engineering Tech Name Role Phone Unavailable Primary Care Provider [...]
--- OUTSIDE RECORDS SUMMARY | 2025-11-12 17:22 | XMS_ITS | Encounter Summary ---
Author Organization Healthcare Address [address] [place] [address] Care Team Providers Care Head Of Mathematics Name Role Phone Unavailable Primary Care Provider Unavailabl e Reason for Visit * Reason Comments Med Refill Encounter Details Date Type Department Care Team (Late st Contact Info) Description 04/28/2021 Refill [facility] [address] [place] [address] Nataliia Smith MD [address] [place] [address] Social History Tobacco Use Types [...]
--- NOTE | 2025-11-12 17:58 | XR_ITS ---
PROCEDURE INFORMATION: Exam: XR Left Hand Exam date and time: 11/12/2025 5:58 PM Age: 35 years old Clinical indication: Injury or trauma; Other: Saw; Laceration; Left; Middle finger; Additional info: Lac to 3rd digit TECHNIQUE: Imaging protocol: Radiologic exam of the left hand. Views: 3 or more views. COMPARISON: No relevant prior studies available. FINDINGS: Bones/joints: Laceration noted along the ulnar aspect of the long finger at the level of the middle phalanx. No acute fracture. Soft tissues: Associated soft tissue swelling is identified. No radiopaque foreign bodies are identified. IMPRESSION: 1. No evidence for acute fracture. 2. Laceration noted along the ulnar aspect of the long finger at the level of the middle phalanx.
[2025-11-12] MEDS: TET/DIPHTH/PERT-ADULT 0.5ML SYRINGE 0.5 ML IM (18:02)
[2025-11-12] MEDS: LIDOCAINE 1% 5ML PF VIAL 5 ML IJ (18:03)
[2025-11-12 19:32] VITALS: BP 130/70; PULSE 72; RESP 20; TEMP 36.8; O2SAT 99
== END 2025-11-12 19:42 | disposition home or self-care (01) ==
PROVIDERS: Emergency Provider Student in an Organized Health Care Education/Training Program; PCP Physician Assistant
DX: S61.213A Laceration without foreign body of left middle finger without damage to nail, initial encounter (principal); W29.3XXA Contact with powered garden and outdoor hand tools and machinery, initial encounter; Y93.H2 Activity, gardening and landscaping; Y92.007 Garden or yard of unspecified non-institutional (private) residence as the place of occurrence of the external cause; R20.2 Paresthesia of skin; Z23 Encounter for immunization
CPT/HCPCS: 12001; 73130; 90471; 90715; 99283; J2003